=== PATIENT | female | born 1990 | race Caucasian/White ===

== ENCOUNTER 2017-07-12 16:34 | Emergency (ER) | payer OTHER ==
[~2017-07-12] VITALS: Ht 152.4 cm; Wt 53.6 kg
[2017-07-12 16:36] VITALS: BP 107/81
== END 2017-07-12 18:30 | disposition home or self-care (01) ==
LOC: ED 16:34
DX: S66.911A Strain of unspecified muscle, fascia and tendon at wrist and hand level, right hand, initial encounter (principal); V29.9XXA Motorcycle rider (driver) (passenger) injured in unspecified traffic accident, initial encounter; Y93.89 Activity, other specified; Y92.89 Other specified places as the place of occurrence of the external cause; Y99.8 Other external cause status

== ENCOUNTER 2018-07-01 15:10 | Emergency (ER) | payer OTHER ==
[2018-07-01 15:18] VITALS: Ht 152.4 cm
[2018-07-01 18:31] VITALS: BP 109/79
== END 2018-07-01 18:31 | disposition home or self-care (01) ==
LOC: ED 15:10
DX: S39.011A Strain of muscle, fascia and tendon of abdomen, initial encounter (principal); S63.501A Unspecified sprain of right wrist, initial encounter; S76.011A Strain of muscle, fascia and tendon of right hip, initial encounter; S93.401A Sprain of unspecified ligament of right ankle, initial encounter; Z91.013 Allergy to seafood; V29.9XXA Motorcycle rider (driver) (passenger) injured in unspecified traffic accident, initial encounter; Y93.I9 Activity, other involving external motion; Y92.413 State road as the place of occurrence of the external cause; Y99.8 Other external cause status
CPT/HCPCS: Q0092